=== PATIENT | male | born 1960 | race African-American/Black ===

== ENCOUNTER 2021-10-13 04:48 | Inpatient (IN) | payer MEDICAID ==
[~2021-10-13] VITALS: Ht 170.2 cm; Wt 54.0 kg
[~2021-10-13 04:48] MED LIST: ALBU2.5V13 IH
[2021-10-13 05:57] LABS: HEMATOCRIT. 39.2 % (42.0-52.0); HEMOGLOBIN. 12.7 g/dL (14.0-18.0); MEAN CORPUSCULAR HEMOGLOBIN 27.3 pg (28.0-32.0); MEAN CORPUSCULAR VOLUME 84.5 fL (80.0-94.0); MEAN PLATELET VOLUME 9.3 fl (7.4-10.4); PLATELET 294 x1000/uL (130-400); RED BLOOD CELL COUNT 4.63 mill/uL (4.7-6.1); RED CELL DISTRIBUTION WIDTH 13.7 % (11.6-14.6)
[2021-10-13] MEDS ORDERED: SODIUM CHLORIDE 0.9% 1,000 ML IV ONE (06:00)
[2021-10-13 06:42] LABS: CHLORIDE 98 mEq/L (98-107)
[2021-10-13] MEDS ORDERED: DOXYCYCLINE HYCLATE 100 MG/VIAL IV ONE (07:30)
[2021-10-13] MEDS ORDERED: CEFTRIAXONE 1 G PREMIX 50 ML IV NR (07:30)
[2021-10-13] MEDS ORDERED: DOXYCYCLINE 100MG in DEXTROSE 5% WATER 100ML IV NR (07:45)
[2021-10-13 08:28] LABS: PLATELET ESTIMATE NORMAL
[2021-10-13] MEDS ORDERED: ALBUTEROL 6.7GM HFA INHALER ORI PRN ×2 (09:30→13:30)
[2021-10-13] MEDS ORDERED: DOCUSATE SODIUM 100MG CAPSULE PO PRN (09:30)
[2021-10-13] MEDS ORDERED: ONDANSETRON HCL 4MG/2ML INJ IV PRN (09:30)
[2021-10-13] MEDS ORDERED: MAGNESIUM/ALUMINUM HYDROXIDE/SIMETHICONE 30ML UDC PO PRN (09:30)
[2021-10-13] MEDS ORDERED: CLONIDINE 0.1MG TABLET PO PRN ×2 (09:30→14:00)
[2021-10-13] MEDS ORDERED: NALOXONE HCL 0.4MG/ML VIAL IV PRN (10:00)
[2021-10-13] MEDS: ENOXAPARIN 40MG/0.4ML SYR SUBCUT SCH (10:12)
[2021-10-13] MEDS ORDERED: AZITHROMYCIN 500 MG in DEXT 5% WATER 250 ML IV SCH (12:00)
[2021-10-13] MEDS: ASCORBIC ACID 500 MG TABLET PO SCH ×2 (13:45→20:32)
[2021-10-13] MEDS: SODIUM CHLORIDE 0.9% INJ 3ML FLUSH IVF SCH ×2 (13:45→20:30)
[2021-10-13] MEDS: DEXAMETHASONE 4MG/ML 1ML VIAL IV SCH (13:45)
[2021-10-13] MEDS: FUROSEMIDE 100MG/10ML VIAL IVP SCH ×3 (14:42→18:47)
[2021-10-13] MEDS: HYDROCODONE/ACETAMINOPHEN 5/325MG TABLET PO PRN (14:42)
[2021-10-13] MEDS: LOSARTAN POTASSIUM 25 MG TABLET PO SCH ×3 (14:42→18:47)
[2021-10-13] MEDS: LORAZEPAM 2MG/ML CPJ IV PRN (15:13)
[2021-10-13] MEDS: ERGOCALCIFEROL 50000UNITS CAPSULE PO SCH ×2 (17:00→18:47)
[2021-10-13 17:33] VITALS: BP 127/66
[2021-10-13 20:00] VITALS: BP 109/72
[2021-10-13] MEDS: DIPHENHYDRAMINE 50MG/ML VIAL IV PRN (23:53)
[2021-10-14 00:01] VITALS: BP 132/87
[2021-10-14 04:00] VITALS: BP 125/94
[2021-10-14] MEDS: SODIUM CHLORIDE 0.9% INJ 3ML FLUSH IVF SCH ×3 (05:46→19:34)
[2021-10-14 08:00] VITALS: BP 139/92
[2021-10-14] MEDS: LOSARTAN POTASSIUM 25 MG TABLET PO SCH ×2 (08:43→16:07)
[2021-10-14] MEDS: DEXAMETHASONE 4MG/ML 1ML VIAL IV SCH (08:43)
[2021-10-14] MEDS: FUROSEMIDE 100MG/10ML VIAL IVP SCH ×2 (08:43→16:07)
[2021-10-14] MEDS: ASCORBIC ACID 500 MG TABLET PO SCH ×2 (08:44→19:34)
[2021-10-14] MEDS: MORPHINE SULFATE 2 MG/ML CPJ (NOT FOR IM USE) IV PRN ×2 (08:50→23:51)
[2021-10-14] MEDS: ENOXAPARIN 40MG/0.4ML SYR SUBCUT SCH (09:00)
[2021-10-14] MEDS ORDERED: CEFTRIAXONE 1 G PREMIX 50 ML IV SCH ×2 (09:00)
[2021-10-14 12:00] VITALS: BP 130/75
[2021-10-14] MEDS: CEFTRIAXONE 1,000 MG in DEXTROSE 5% WATER 50 ML IV SCH (12:49)
[2021-10-14 15:11] LABS: BG CARBOXYHEMOGLOBIN 0.9 % (0.5-1.5); BG DEOXYHEMOGLOBIN 4.7 % (0.0-5.0); BG HCO3 ACT 29.8 mmol/L (22.0-26.0); BG METHEMOGLOBIN 0.1 % (0.0-1.5); BG OXYGEN SATURATION 95.3 % (92.0-98.5); BG OXYHEMOGLOBIN 94.3 % (94.0-97.0); BG PCO2 49.4 mmHg (35.0-45.0); BG PH 7.398 (7.350-7.450); BG PO2 79.5 mmHg (75.0-100.0); BG SAMPLE SITE LEFT RADIAL; BG TOTAL HEMOGLOBIN 13.3 g/dL (12.0-18.0); BG VENT MODE NASAL CANNULA
[2021-10-14 16:00] VITALS: BP 104/76
[2021-10-14] MEDS: AZITHROMYCIN 500 MG in DEXT 5% WATER 250 ML IV SCH (16:07)
[2021-10-14] MEDS: NICOTINE 14MG PATCH TD SCH (16:25)
[2021-10-14 18:48] LABS: *AMPHETAMINES SCREEN URINE NEGATIVE (NEGATIVE); *BARBITURATES SCREEN URINE NEGATIVE (NEGATIVE)
[2021-10-14 18:49] LABS: *BENZODIAZEPINES SCREEN URINE NEGATIVE (NEGATIVE); *COCAINE SCREEN URINE PRESUMTIVE POSITIVE (NEGATIVE); METHADONE URINE SCREEN NEGATIVE (NEGATIVE); OPIATES URINE SCREEN PRESUMTIVE POSITIVE (NEGATIVE); PHENCYCLIDINE URINE SCREEN NEGATIVE (NEGATIVE)
[2021-10-14 18:54] LABS: CANNABINOID URINE SCREEN PRESUMTIVE POSITIVE (NEGATIVE)
[2021-10-14] MEDS: LORAZEPAM 2MG/ML CPJ IV PRN (19:34)
[2021-10-14 20:00] VITALS: BP 102/71
[2021-10-15 00:05] VITALS: BP 109/69
[2021-10-15 04:03] VITALS: BP 123/80
[2021-10-15] MEDS: SODIUM CHLORIDE 0.9% INJ 3ML FLUSH IVF SCH ×3 (04:50→21:02)
[2021-10-15 08:00] VITALS: BP 103/77
[2021-10-15] MEDS: LOSARTAN POTASSIUM 25 MG TABLET PO SCH (09:00)
[2021-10-15] MEDS: ASCORBIC ACID 500 MG TABLET PO SCH ×2 (09:17→21:02)
[2021-10-15] MEDS: NICOTINE 14MG PATCH TD SCH (09:17)
[2021-10-15] MEDS: FUROSEMIDE 100MG/10ML VIAL IVP SCH ×2 (09:17→16:24)
[2021-10-15] MEDS: DEXAMETHASONE 4MG/ML 1ML VIAL IV SCH (09:17)
[2021-10-15] MEDS: CEFTRIAXONE 1,000 MG in DEXTROSE 5% WATER 50 ML IV SCH (09:18)
[2021-10-15] MEDS: ENOXAPARIN 40MG/0.4ML SYR SUBCUT SCH (09:20)
[2021-10-15 12:00] VITALS: BP 98/77
[2021-10-15] MEDS: AZITHROMYCIN 500 MG in DEXT 5% WATER 250 ML IV SCH (14:28)
[2021-10-15 16:00] VITALS: BP 103/72
[2021-10-15] MEDS: HYDROCODONE/ACETAMINOPHEN 5/325MG TABLET PO PRN (16:47)
[2021-10-15 20:00] VITALS: BP 115/70
[2021-10-15] MEDS: LORAZEPAM 2MG/ML CPJ IV PRN (21:02)
[2021-10-16] VITALS: BP 108/66
[2021-10-16 04:00] VITALS: BP 111/69
[2021-10-16] MEDS: SODIUM CHLORIDE 0.9% INJ 3ML FLUSH IVF SCH ×3 (06:00→20:47)
[2021-10-16 07:29] LABS: HEMOGLOBIN. 12.4 g/dL (14.0-18.0); MEAN CORPUSCULAR HEMOGLOBIN 28.1 pg (28.0-32.0); MEAN CORPUSCULAR VOLUME 84.4 fL (80.0-94.0); MEAN PLATELET VOLUME 8.1 fl (7.4-10.4); PLATELET 421 x1000/uL (130-400); RED BLOOD CELL COUNT 4.39 mill/uL (4.7-6.1); RED CELL DISTRIBUTION WIDTH 13.5 % (11.6-14.6)
[2021-10-16 08:00] VITALS: BP 113/75
[2021-10-16] MEDS: LORAZEPAM 2MG/ML CPJ IV PRN ×2 (08:55→23:21)
[2021-10-16] MEDS: ASCORBIC ACID 500 MG TABLET PO SCH ×2 (08:56→20:46)
[2021-10-16] MEDS: FUROSEMIDE 100MG/10ML VIAL IVP SCH (08:56)
[2021-10-16] MEDS: DEXAMETHASONE 10 MG/ML VIAL IV SCH (08:56)
[2021-10-16] MEDS: NICOTINE 14MG PATCH TD SCH (08:56)
[2021-10-16] MEDS: LOSARTAN POTASSIUM 25 MG TABLET PO SCH (08:57)
[2021-10-16 09:06] LABS: CHLORIDE 97 mEq/L (98-107)
[2021-10-16] MEDS: CEFTRIAXONE 1,000 MG in DEXTROSE 5% WATER 50 ML IV SCH (09:17)
[2021-10-16] MEDS: ENOXAPARIN 40MG/0.4ML SYR SUBCUT SCH (09:18)
[2021-10-16 12:00] VITALS: BP 110/70
[2021-10-16] MEDS: HYDROCODONE/ACETAMINOPHEN 5/325MG TABLET PO PRN (12:37)
[2021-10-16] MEDS: AZITHROMYCIN 500 MG in DEXT 5% WATER 250 ML IV SCH (14:39)
[2021-10-16 14:43] LABS: PLATELET ESTIMATE SLIGHTLY INCREASED
[2021-10-16 16:00] VITALS: BP 122/70
[2021-10-16 20:00] VITALS: BP 134/89
[2021-10-17] VITALS: BP 126/84
[2021-10-17] MEDS: HYDROCODONE/ACETAMINOPHEN 5/325MG TABLET PO PRN ×3 (01:45→16:52)
[2021-10-17 04:00] VITALS: BP 108/66
[2021-10-17] MEDS: SODIUM CHLORIDE 0.9% INJ 3ML FLUSH IVF SCH ×3 (05:35→21:36)
[2021-10-17 08:00] VITALS: BP 110/80
[2021-10-17] MEDS ORDERED: FUROSEMIDE 40MG/4ML VIAL IVP SCH (08:00)
[2021-10-17] MEDS: CEFTRIAXONE 1,000 MG in DEXTROSE 5% WATER 50 ML IV SCH (09:14)
[2021-10-17] MEDS: ENOXAPARIN 40MG/0.4ML SYR SUBCUT SCH (09:15)
[2021-10-17] MEDS: NICOTINE 14MG PATCH TD SCH (09:15)
[2021-10-17] MEDS: LOSARTAN POTASSIUM 25 MG TABLET PO SCH (09:16)
[2021-10-17] MEDS: DEXAMETHASONE 10 MG/ML VIAL IV SCH (09:16)
[2021-10-17] MEDS: ASCORBIC ACID 500 MG TABLET PO SCH ×2 (09:16→21:36)
[2021-10-17] MEDS: LORAZEPAM 2MG/ML CPJ IV PRN ×2 (09:32→13:40)
[2021-10-17 12:00] VITALS: BP 99/67
[2021-10-17] MEDS ORDERED: AZITHROMYCIN 500 MG TABLET PO SCH (14:00)
[2021-10-17 16:00] VITALS: BP 126/71
[2021-10-17 20:00] VITALS: BP 134/78
[2021-10-18] VITALS: BP 129/89
[2021-10-18 04:00] VITALS: BP 135/81
[2021-10-18] MEDS: SODIUM CHLORIDE 0.9% INJ 3ML FLUSH IVF SCH ×2 (06:00→22:00)
[2021-10-18 07:28] LABS: HEMATOCRIT. 35.2 % (42.0-52.0); HEMOGLOBIN. 11.7 g/dL (14.0-18.0); MEAN CORPUSCULAR HEMOGLOBIN 28.3 pg (28.0-32.0); MEAN CORPUSCULAR VOLUME 84.9 fL (80.0-94.0); MEAN PLATELET VOLUME 7.9 fl (7.4-10.4); PLATELET 443 x1000/uL (130-400); RED BLOOD CELL COUNT 4.14 mill/uL (4.7-6.1); RED CELL DISTRIBUTION WIDTH 13.6 % (11.6-14.6)
[2021-10-18 07:35] LABS: CHLORIDE 98 mEq/L (98-107)
[2021-10-18 08:00] VITALS: BP 143/92
[2021-10-18] MEDS: ASCORBIC ACID 500 MG TABLET PO SCH ×2 (08:46→21:06)
[2021-10-18] MEDS: LOSARTAN POTASSIUM 25 MG TABLET PO SCH (08:46)
[2021-10-18] MEDS: FUROSEMIDE 40MG TABLET PO SCH (08:46)
[2021-10-18] MEDS: CEFTRIAXONE 1,000 MG in DEXTROSE 5% WATER 50 ML IV SCH (08:47)
[2021-10-18] MEDS: NICOTINE 14MG PATCH TD SCH (08:47)
[2021-10-18] MEDS: DEXAMETHASONE 10 MG/ML VIAL IV SCH (08:47)
[2021-10-18] MEDS ORDERED: HYDROCODONE/ACETAMINOPHEN 5/325MG TABLET PO NR (10:30)
[2021-10-18] MEDS: ASPIRIN 81MG EC TABLET PO SCH (10:32)
[2021-10-18] MEDS: ENOXAPARIN 40MG/0.4ML SYR SUBCUT SCH (10:32)
[2021-10-18 10:54] LABS: PLATELET ESTIMATE INCREASED
[2021-10-18 12:00] VITALS: BP 108/68
[2021-10-18 16:08] VITALS: BP 102/67
[2021-10-18 20:00] VITALS: BP 127/59
[2021-10-18] MEDS: ACETAMINOPHEN 325MG TABLET PO PRN ×2 (21:13→23:36)
[2021-10-19] MEDS: SODIUM CHLORIDE 0.9% INJ 3ML FLUSH IVF SCH ×3 (05:13→21:27)
[2021-10-19 06:53] LABS: HEMATOCRIT. 32.7 % (42.0-52.0); HEMOGLOBIN. 10.9 g/dL (14.0-18.0); MEAN CORPUSCULAR HEMOGLOBIN 28.5 pg (28.0-32.0); MEAN CORPUSCULAR VOLUME 85.1 fL (80.0-94.0); MEAN PLATELET VOLUME 7.9 fl (7.4-10.4); PLATELET 475 x1000/uL (130-400); RED BLOOD CELL COUNT 3.84 mill/uL (4.7-6.1); RED CELL DISTRIBUTION WIDTH 13.6 % (11.6-14.6)
[2021-10-19 07:05] LABS: CHLORIDE 98 mEq/L (98-107)
[2021-10-19 08:05] VITALS: BP 152/87
[2021-10-19] MEDS: DEXAMETHASONE 10 MG/ML VIAL IV SCH (09:04)
[2021-10-19] MEDS: LOSARTAN POTASSIUM 25 MG TABLET PO SCH ×2 (09:04→21:00)
[2021-10-19] MEDS: ASCORBIC ACID 500 MG TABLET PO SCH ×2 (09:05→21:27)
[2021-10-19] MEDS: ASPIRIN 81MG EC TABLET PO SCH (09:05)
[2021-10-19] MEDS: FUROSEMIDE 40MG TABLET PO SCH (09:05)
[2021-10-19] MEDS: NICOTINE 14MG PATCH TD SCH (09:05)
[2021-10-19] MEDS: ENOXAPARIN 40MG/0.4ML SYR SUBCUT SCH (09:06)
[2021-10-19] MEDS: CEFTRIAXONE 1,000 MG in DEXTROSE 5% WATER 50 ML IV SCH (09:07)
[2021-10-19 10:08] LABS: PLATELET ESTIMATE INCREASED
[2021-10-19 12:00] VITALS: BP 144/88
[2021-10-19 16:00] VITALS: BP 111/79
[2021-10-19 20:00] VITALS: BP 101/51
[2021-10-20] VITALS: BP 130/63
[2021-10-20] MEDS: SODIUM CHLORIDE 0.9% INJ 3ML FLUSH IVF SCH ×3 (06:42→20:16)
[2021-10-20 08:00] VITALS: BP 109/64
[2021-10-20 08:32] LABS: HEMATOCRIT. 32.9 % (42.0-52.0); HEMOGLOBIN. 10.4 g/dL (14.0-18.0); MEAN CORPUSCULAR VOLUME 85.2 fL (80.0-94.0); MEAN PLATELET VOLUME 7.7 fl (7.4-10.4); PLATELET 521 x1000/uL (130-400); RED BLOOD CELL COUNT 3.86 mill/uL (4.7-6.1); RED CELL DISTRIBUTION WIDTH 13.5 % (11.6-14.6)
[2021-10-20 08:42] LABS: CHLORIDE 97 mEq/L (98-107)
[2021-10-20] MEDS: LOSARTAN POTASSIUM 25 MG TABLET PO SCH ×2 (09:00→20:15)
[2021-10-20] MEDS: ASCORBIC ACID 500 MG TABLET PO SCH ×2 (09:05→20:16)
[2021-10-20] MEDS: FUROSEMIDE 40MG TABLET PO SCH (09:05)
[2021-10-20] MEDS: ASPIRIN 81MG EC TABLET PO SCH (09:05)
[2021-10-20] MEDS: NICOTINE 14MG PATCH TD SCH (09:06)
[2021-10-20] MEDS: ENOXAPARIN 40MG/0.4ML SYR SUBCUT SCH (09:06)
[2021-10-20] MEDS: DEXAMETHASONE 10 MG/ML VIAL IV SCH (09:07)
[2021-10-20] MEDS ORDERED: NALOXONE HCL 0.4MG/ML VIAL IV PRN (10:45)
[2021-10-20] MEDS: HYDROCODONE/ACETAMINOPHEN 5/325MG TABLET PO PRN (10:47)
[2021-10-20 12:00] VITALS: BP 119/82
[2021-10-20 12:17] LABS: PLATELET ESTIMATE INCREASED
[2021-10-20 16:00] VITALS: BP 119/79
[2021-10-20] MEDS: ERGOCALCIFEROL 50000UNITS CAPSULE PO SCH (16:16)
[2021-10-20 20:00] VITALS: BP 110/69
[2021-10-21] VITALS: BP 120/73
[2021-10-21] MEDS: HYDROCODONE/ACETAMINOPHEN 5/325MG TABLET PO PRN ×2 (01:22→15:16)
[2021-10-21 04:00] VITALS: BP 132/81
[2021-10-21] MEDS: SODIUM CHLORIDE 0.9% INJ 3ML FLUSH IVF SCH ×3 (05:17→22:00)
[2021-10-21 08:00] VITALS: BP 123/89
[2021-10-21] MEDS: ENOXAPARIN 40MG/0.4ML SYR SUBCUT SCH ×2 (08:27→10:00)
[2021-10-21] MEDS: NICOTINE 14MG PATCH TD SCH (08:27)
[2021-10-21] MEDS: ASPIRIN 81MG EC TABLET PO SCH (08:28)
[2021-10-21] MEDS: GUAIFENESIN 200MG/10ML SUGAR FREE UDC PO PRN (08:28)
[2021-10-21] MEDS: DEXAMETHASONE 10 MG/ML VIAL IV SCH (08:28)
[2021-10-21] MEDS: FUROSEMIDE 40MG TABLET PO SCH (08:28)
[2021-10-21] MEDS: LOSARTAN POTASSIUM 25 MG TABLET PO SCH ×2 (08:33→21:00)
[2021-10-21] MEDS: ASCORBIC ACID 500 MG TABLET PO SCH ×2 (08:35→21:00)
[2021-10-21 12:00] VITALS: BP 147/102
[2021-10-21 16:00] VITALS: BP 123/73
[2021-10-21 20:00] VITALS: BP 137/82
[2021-10-22] VITALS: BP 134/88
[2021-10-22 04:00] VITALS: BP 108/73
[2021-10-22] MEDS: HYDROCODONE/ACETAMINOPHEN 5/325MG TABLET PO PRN ×2 (04:11→22:08)
[2021-10-22] MEDS: SODIUM CHLORIDE 0.9% INJ 3ML FLUSH IVF SCH ×3 (06:00→22:14)
[2021-10-22 08:00] VITALS: BP 110/89
[2021-10-22] MEDS: ENOXAPARIN 40MG/0.4ML SYR SUBCUT SCH (08:57)
[2021-10-22] MEDS: ASCORBIC ACID 500 MG TABLET PO SCH ×2 (08:57→21:00)
[2021-10-22] MEDS: NICOTINE 14MG PATCH TD SCH (08:57)
[2021-10-22] MEDS: LOSARTAN POTASSIUM 25 MG TABLET PO SCH ×2 (08:58→21:00)
[2021-10-22] MEDS: FUROSEMIDE 40MG TABLET PO SCH (08:58)
[2021-10-22] MEDS: DEXAMETHASONE 10 MG/ML VIAL IV SCH (08:58)
[2021-10-22] MEDS: GUAIFENESIN 200MG/10ML SUGAR FREE UDC PO PRN (08:58)
[2021-10-22] MEDS: ASPIRIN 81MG EC TABLET PO SCH (08:58)
[2021-10-22 12:00] VITALS: BP 127/80
[2021-10-22 16:00] VITALS: BP 118/71
[2021-10-22 20:00] VITALS: BP 137/73
[2021-10-23] VITALS: BP 122/70
[2021-10-23 04:00] VITALS: BP 130/75
[2021-10-23] MEDS: SODIUM CHLORIDE 0.9% INJ 3ML FLUSH IVF SCH ×3 (06:25→20:04)
[2021-10-23 07:10] LABS: CHLORIDE 101 mEq/L (98-107)
[2021-10-23 07:17] LABS: HEMATOCRIT. 28.5 % (42.0-52.0); HEMOGLOBIN. 9.2 g/dL (14.0-18.0); MEAN CORPUSCULAR HEMOGLOBIN 27.7 pg (28.0-32.0); MEAN CORPUSCULAR VOLUME 86.4 fL (80.0-94.0); MEAN PLATELET VOLUME 7.9 fl (7.4-10.4); PLATELET 532 x1000/uL (130-400); RED CELL DISTRIBUTION WIDTH 13.7 % (11.6-14.6)
[2021-10-23 08:00] VITALS: BP 145/92
[2021-10-23] MEDS: LOSARTAN POTASSIUM 25 MG TABLET PO SCH ×2 (08:22→20:03)
[2021-10-23] MEDS: GUAIFENESIN 200MG/10ML SUGAR FREE UDC PO PRN (08:22)
[2021-10-23] MEDS: ASCORBIC ACID 500 MG TABLET PO SCH ×2 (08:22→20:04)
[2021-10-23] MEDS: ASPIRIN 81MG EC TABLET PO SCH (08:22)
[2021-10-23] MEDS: FUROSEMIDE 40MG TABLET PO SCH (08:22)
[2021-10-23] MEDS: ENOXAPARIN 40MG/0.4ML SYR SUBCUT SCH (08:23)
[2021-10-23] MEDS: NICOTINE 14MG PATCH TD SCH (08:23)
[2021-10-23 12:00] VITALS: BP 140/84
[2021-10-23] MEDS: HYDROCODONE/ACETAMINOPHEN 5/325MG TABLET PO PRN (14:22)
[2021-10-23 16:00] VITALS: BP 122/76
[2021-10-23 20:00] VITALS: BP 131/86
[2021-10-23] MEDS: DIPHENHYDRAMINE 50MG/ML VIAL IV PRN (20:03)
[2021-10-23 20:16] LABS: PLATELET ESTIMATE INCREASED
[2021-10-24] VITALS (7 sets, daily range): BP systolic 120–149; BP diastolic 73–99
[2021-10-24] MEDS: DIPHENHYDRAMINE 50MG/ML VIAL IV PRN ×2 (00:09→20:26)
[2021-10-24] MEDS: SODIUM CHLORIDE 0.9% INJ 3ML FLUSH IVF SCH ×3 (05:51→22:33)
[2021-10-24] MEDS: LOSARTAN POTASSIUM 25 MG TABLET PO SCH ×2 (08:40→21:00)
[2021-10-24] MEDS: FUROSEMIDE 40MG TABLET PO SCH (08:40)
[2021-10-24] MEDS: ASCORBIC ACID 500 MG TABLET PO SCH ×2 (08:40→20:26)
[2021-10-24] MEDS: NICOTINE 14MG PATCH TD SCH (08:40)
[2021-10-24] MEDS: HYDROCODONE/ACETAMINOPHEN 5/325MG TABLET PO PRN (15:59)
[2021-10-25] MEDS: DIPHENHYDRAMINE 50MG/ML VIAL IV PRN ×3 (03:31→18:46)
[2021-10-25 04:00] VITALS: BP 131/81
[2021-10-25] MEDS: SODIUM CHLORIDE 0.9% INJ 3ML FLUSH IVF SCH ×3 (05:58→21:30)
[2021-10-25] MEDS: LOSARTAN POTASSIUM 25 MG TABLET PO SCH ×3 (08:47→21:00)
[2021-10-25] MEDS: FUROSEMIDE 40MG TABLET PO SCH (08:47)
[2021-10-25] MEDS: NICOTINE 14MG PATCH TD SCH (08:47)
[2021-10-25] MEDS: ASCORBIC ACID 500 MG TABLET PO SCH ×2 (08:47→21:25)
[2021-10-25 12:00] VITALS: BP 107/61
[2021-10-25] MEDS: CHLORPROMAZINE HCL 25 MG TABLET PO PRN ×2 (15:05→21:25)
[2021-10-25 16:00] VITALS: BP 98/67
[2021-10-25 20:00] VITALS: BP 99/59
[2021-10-25] MEDS: ACETAMINOPHEN 325MG TABLET PO PRN (21:25)
[2021-10-26 04:00] VITALS: BP 121/80
[2021-10-26] MEDS: SODIUM CHLORIDE 0.9% INJ 3ML FLUSH IVF SCH ×3 (04:59→22:00)
[2021-10-26] MEDS: DIPHENHYDRAMINE 50MG/ML VIAL IV PRN (04:59)
[2021-10-26 08:00] VITALS: BP 104/81
[2021-10-26] MEDS: ASCORBIC ACID 500 MG TABLET PO SCH ×2 (08:53→20:20)
[2021-10-26] MEDS: LOSARTAN POTASSIUM 25 MG TABLET PO SCH ×2 (08:53→21:00)
[2021-10-26] MEDS: FUROSEMIDE 40MG TABLET PO SCH (08:53)
[2021-10-26] MEDS: NICOTINE 14MG PATCH TD SCH (08:54)
[2021-10-26 12:00] VITALS: BP 117/83
[2021-10-26 16:18] VITALS: BP 117/84
[2021-10-26 20:00] VITALS: BP 128/68
[2021-10-26] MEDS: METOPROLOL TARTRATE 25MG TABLET PO SCH (21:00)
[2021-10-26 21:54] LABS: HEMATOCRIT. 31.3 % (42.0-52.0); HEMOGLOBIN. 10.1 g/dL (14.0-18.0); MEAN CORPUSCULAR HEMOGLOBIN 27.5 pg (28.0-32.0); MEAN CORPUSCULAR VOLUME 85.4 fL (80.0-94.0); MEAN PLATELET VOLUME 7.6 fl (7.4-10.4); PLATELET 519 x1000/uL (130-400); RED BLOOD CELL COUNT 3.66 mill/uL (4.7-6.1); RED CELL DISTRIBUTION WIDTH 14.3 % (11.6-14.6)
[2021-10-26 22:10] LABS: CHLORIDE 101 mEq/L (98-107)
[2021-10-26 22:41] LABS: PLATELET ESTIMATE INCREASED
[2021-10-27] MEDS: CHLORPROMAZINE HCL 25 MG TABLET PO PRN ×2 (02:35→09:52)
[2021-10-27 04:00] VITALS: BP 117/72
[2021-10-27] MEDS: SODIUM CHLORIDE 0.9% INJ 3ML FLUSH IVF SCH ×3 (05:39→21:18)
[2021-10-27 08:00] VITALS: BP 105/73
[2021-10-27] MEDS: METOPROLOL TARTRATE 25MG TABLET PO SCH ×3 (09:00→21:19)
[2021-10-27] MEDS: LOSARTAN POTASSIUM 25 MG TABLET PO SCH ×2 (09:00→21:00)
[2021-10-27] MEDS ORDERED: CEFTRIAXONE 1 G PREMIX 50 ML IV SCH (09:30)
[2021-10-27] MEDS: FUROSEMIDE 40MG TABLET PO SCH (09:52)
[2021-10-27] MEDS: NICOTINE 14MG PATCH TD SCH (09:52)
[2021-10-27] MEDS: ASCORBIC ACID 500 MG TABLET PO SCH ×2 (09:52→21:18)
[2021-10-27 12:00] VITALS: BP 110/86
[2021-10-27] MEDS: CEFTRIAXONE 1,000 MG in DEXTROSE 5% WATER 50 ML IV SCH (12:32)
[2021-10-27 16:00] VITALS: BP 120/79
[2021-10-27] MEDS: ERGOCALCIFEROL 50000UNITS CAPSULE PO SCH (17:21)
[2021-10-27 20:45] VITALS: BP 121/80
[2021-10-27] MEDS: DIPHENHYDRAMINE 50MG/ML VIAL IV PRN (23:40)
[2021-10-28 00:19] VITALS: BP 112/72
[2021-10-28 04:00] VITALS: BP 104/70
[2021-10-28] MEDS: SODIUM CHLORIDE 0.9% INJ 3ML FLUSH IVF SCH ×2 (05:54→20:46)
[2021-10-28 06:54] LABS: HEMATOCRIT. 28.8 % (42.0-52.0); HEMOGLOBIN. 9.6 g/dL (14.0-18.0); MEAN CORPUSCULAR HEMOGLOBIN 28.5 pg (28.0-32.0); MEAN CORPUSCULAR VOLUME 85.7 fL (80.0-94.0); MEAN PLATELET VOLUME 7.8 fl (7.4-10.4); PLATELET 441 x1000/uL (130-400); RED BLOOD CELL COUNT 3.36 mill/uL (4.7-6.1)
[2021-10-28 07:02] LABS: CHLORIDE 102 mEq/L (98-107)
[2021-10-28 08:00] VITALS: BP 127/75
[2021-10-28] MEDS: ASCORBIC ACID 500 MG TABLET PO SCH ×2 (09:14→20:46)
[2021-10-28] MEDS: FUROSEMIDE 40MG TABLET PO SCH (09:14)
[2021-10-28] MEDS: LOSARTAN POTASSIUM 25 MG TABLET PO SCH ×2 (09:14→20:46)
[2021-10-28] MEDS: ACETAMINOPHEN 325MG TABLET PO PRN (09:14)
[2021-10-28] MEDS: NICOTINE 14MG PATCH TD SCH (09:14)
[2021-10-28] MEDS: METOPROLOL TARTRATE 25MG TABLET PO SCH ×2 (09:15→20:46)
[2021-10-28] MEDS: CEFTRIAXONE 1,000 MG in DEXTROSE 5% WATER 50 ML IV SCH (11:57)
[2021-10-28 12:00] VITALS: BP 117/71
[2021-10-28 16:00] VITALS: BP 120/89
[2021-10-28] MEDS ORDERED: THROAT LOZENGES-BENZOCAINE/MENTH/CETYLPYRD CL LOZENGES MM PRN (17:00)
[2021-10-28] MEDS: DIPHENHYDRAMINE 50MG/ML VIAL IV PRN (19:21)
[2021-10-28 20:00] VITALS: BP 104/67
[2021-10-29] VITALS (7 sets, daily range): BP systolic 107–132; BP diastolic 71–85
[2021-10-29] MEDS: DIPHENHYDRAMINE 50MG/ML VIAL IV PRN ×2 (01:46→21:28)
[2021-10-29] MEDS: SODIUM CHLORIDE 0.9% INJ 3ML FLUSH IVF SCH ×3 (06:20→21:14)
[2021-10-29 07:33] LABS: PLATELET ESTIMATE INCREASED
[2021-10-29] MEDS: ASCORBIC ACID 500 MG TABLET PO SCH ×2 (08:27→21:14)
[2021-10-29] MEDS: FUROSEMIDE 40MG TABLET PO SCH (08:27)
[2021-10-29] MEDS: NICOTINE 14MG PATCH TD SCH (08:27)
[2021-10-29] MEDS: LOSARTAN POTASSIUM 25 MG TABLET PO SCH ×2 (08:27→21:00)
[2021-10-29] MEDS: METOPROLOL TARTRATE 25MG TABLET PO SCH ×3 (08:28→21:00)
[2021-10-29] MEDS: CEFTRIAXONE 1,000 MG in DEXTROSE 5% WATER 50 ML IV SCH (11:32)
[2021-10-29] MEDS: ACETAMINOPHEN 325MG TABLET PO PRN (17:02)
[2021-10-30] VITALS: BP 119/71
[2021-10-30 04:00] VITALS: BP 130/88
[2021-10-30] MEDS: SODIUM CHLORIDE 0.9% INJ 3ML FLUSH IVF SCH ×2 (06:11→14:00)
[2021-10-30 08:00] VITALS: BP 130/85
[2021-10-30] MEDS: FUROSEMIDE 40MG TABLET PO SCH ×2 (08:43→09:00)
[2021-10-30] MEDS: ASCORBIC ACID 500 MG TABLET PO SCH (08:43)
[2021-10-30] MEDS: NICOTINE 14MG PATCH TD SCH (08:44)
[2021-10-30] MEDS: LOSARTAN POTASSIUM 25 MG TABLET PO SCH (09:00)
[2021-10-30] MEDS: METOPROLOL TARTRATE 25MG TABLET PO SCH (09:00)
[2021-10-30 12:00] VITALS: BP 125/76
[2021-10-30] MEDS: CEFTRIAXONE 1,000 MG in DEXTROSE 5% WATER 50 ML IV SCH (13:43)
[2021-10-30 15:47] VITALS: BP_SYST 125; BP_SYST 132; BP_DIAS 76; BP_DIAS 83
[2021-10-30] MEDS ORDERED: INFLUENZA VACCINE 05/PF 0.5 ML SYRINGE IM ONE (17:00)
[2021-10-30] MEDS ORDERED: PNEUMOCOCCAL 23-VAL P-SAC VAC 0.5 ML IM ONE (17:00)
== END 2021-10-30 18:35 | disposition home or self-care (01) | DRG 720 ==
LOC: ER 04:48 → 7WST 09:26 → ENRESERV 15:31 → 6EST 10-29 18:33
PROVIDERS: ADMIT Internal Medicine; ATTEND Internal Medicine
DX: A41.89 Other specified sepsis (principal); J96.01 Acute respiratory failure with hypoxia; J12.82 Pneumonia due to coronavirus disease 2019; U07.1 COVID-19; E44.0 Moderate protein-calorie malnutrition; I50.23 Acute on chronic systolic (congestive) heart failure; I42.0 Dilated cardiomyopathy; I11.0 Hypertensive heart disease with heart failure; E86.0 Dehydration; F14.10 Cocaine abuse, uncomplicated; F11.10 Opioid abuse, uncomplicated; F12.10 Cannabis abuse, uncomplicated; I34.0 Nonrheumatic mitral (valve) insufficiency; D64.9 Anemia, unspecified; J44.0 Chronic obstructive pulmonary disease with (acute) lower respiratory infection; E87.1 Hypo-osmolality and hyponatremia; F17.210 Nicotine dependence, cigarettes, uncomplicated; N17.9 Acute kidney failure, unspecified; Z59.00 Homelessness unspecified; Z91.19 Patient's noncompliance with other medical treatment and regimen; Z79.899 Other long term (current) drug therapy; Z68.1 Body mass index [BMI] 19.9 or less, adult; Z71.6 Tobacco abuse counseling; Z71.51 Drug abuse counseling and surveillance of drug abuser
CPT/HCPCS: 36415; 36600; 71045; 80048; 80053; 80305; 82375; 82805; 83880; 84145; 84484; 85025; 87426; 87804; 90686; 90732; 93005; 99285; A6261; J0456; J0696; J1100; J1200; J1650; J1940; J2060; J2270; J2405; J3490; J7030; J7040; J7060; Q0161; U0003; U0005